=== PATIENT | male | born 1955 | race Caucasian/White ===

== ENCOUNTER → 2017-11-03 | Outpatient (CLI) | payer BC ==
[~2017-11-03] MED LIST: DILAUDID2 MG PO; FLOMAX0.4 MG PO; GLUCOPHAGE500 MG PO; LISINOPRIL10 MG PO; MOTRIN600 MG PO; PERCOCET 5/31 TABLET PO; PERCOCET 7.51 TABLET PO; SIMVASTATIN80 MG PO; ZOFRAN ODT4 MG PO; ZOFRAN4 MG PO
== END | disposition home or self-care (01) ==
LOC: CDC 14:37
DX: Z01.810 Encounter for preprocedural cardiovascular examination (principal); M25.562 Pain in left knee; S83.232A Complex tear of medial meniscus, current injury, left knee, initial encounter; M17.12 Unilateral primary osteoarthritis, left knee; R94.31 Abnormal electrocardiogram [ECG] [EKG]
CPT/HCPCS: 93000